=== PATIENT | female | born 1975 | race Two or more races ===

== ENCOUNTER 2019-11-17 00:31 | Emergency (ER) | payer MEDICAID ==
[~2019-11-17] VITALS: Ht 167.6 cm; Wt 81.2 kg
--- NOTE | 2019-11-17 00:38 | NUR ---
PT AAOX4. AMBULATORY WITH STEADY GAIT, BIBSELF C/O INTERMITTENT L SIDED CP WITH [id number] WEB CONTENT DEVELOPER. ALSO PT MENTIONED DIARRHEA X2 DAYS. PLACED ON MONITOR AND PULSE OX. VSS. RR EVEN AND UNLABORED, AT BEDSIDE FOR EVAL.
[2019-11-17] MEDS ORDERED: LORAZEPAM 1 MG TABLET ONE (00:58)
[2019-11-17] MEDS ORDERED: LORAZEPAM 1 MG TABLET PO ONE (01:00)
--- NOTE | 2019-11-17 01:03 | NUR ---
POLICE DETECTIVE AT BEDSIDE FOR LABS
[2019-11-17 01:09] LABS: BASOPHILS % (AUTO) 0.4 % (0.0-2.0); EOSINOPHILS % (AUTO) 0.7 % (0.0-6.0); HEMATOCRIT 42 % (33-45); HEMOGLOBIN 14.1 g/dL (11.5-14.8); LYMPHOCYTES # (AUTO) 2.7 /CMM (0.8-4.8); LYMPHOCYTES % (AUTO) 37.4 % (20.0-44.0); MEAN CORPUSCULAR HGB CONC 33 g/dl (31.0-36.0); MEAN CORPUSCULAR VOLUME 97 fL (82-100); MONOCYTES # (AUTO) 0.6 /CMM (0.1-1.30); MONOCYTES % (AUTO) 8.7 % (2.0-12.0); NEUTROPHILS # (AUTO) 3.8 /CMM (1.8-8.9); NEUTROPHILS % (AUTO) 52.8 % (43.0-81.0); PLATELET COUNT (AUTO) 435 /CMM (150-450); RED BLOOD CELL COUNT(AUTO) 4.38 MIL/uL (4.0-5.2); WHITE BLOOD COUNT (AUTO) 7.2 K/uL (4.3-11.0)
[2019-11-17 01:28] LABS: ALANINE AMINOTRANSFERASE 18 U/L (12-78); ALBUMIN 3.8 g/dL (3.4-5.0); ALKALINE PHOSPHATASE 51 U/L (46-116); ASPARTATE AMINOTRANSFERASE 16 U/L (15-37); BILIRUBIN,DIRECT 0.1 mg/dL (0.0-0.2); BILIRUBIN,TOTAL 0.2 mg/dL (0.2-1.0); CALCIUM, SERUM 9.2 mg/dL (8.5-10.1); CARBON DIOXIDE 30 mmol/L (21-32); CHLORIDE 102 mmol/L (98-107); CREATININE 0.8 mg/dL (0.6-1.3); GLUCOSE 106 mg/dL (74-106); POTASSIUM 3.6 mmol/L (3.5-5.1); SODIUM SERUM 141 mmol/L (136-145); TOTAL PROTEIN, SERUM 7.5 g/dL (6.4-8.2); UREA NITROGEN, BLOOD 8 mg/dL (7-18)
--- NOTE | 2019-11-17 01:33 | NUR ---
Patient discharged to home in stable condition. Written and verbal after care instructions given. Patient verbalizes understanding of instruction. pt ambulatory with steady gait.
[2019-11-17 01:34] VITALS: BP 126/77
== END 2019-11-17 01:34 | disposition home or self-care (01) ==
LOC: ER 00:33
DX: F15.10 Other stimulant abuse, uncomplicated (principal); F41.9 Anxiety disorder, unspecified; R00.2 Palpitations
CPT/HCPCS: 36415; 71045-TC; 80048-TC; 80076-TC; 84484-TC; 85025-TC